=== PATIENT | female | born 1985 | race Caucasian/White ===

== ENCOUNTER 2023-03-30 01:11 | Day surgery (SDC) | payer BC, SELFPAY ==
--- NOTE | 2023-03-20 15:28 | PC.NURSE ---
Report to the Outpatient Waiting Room, entrance under the green pavilion located off [facility], at time 0600 on date 03/30/23. Planned Procedure Time: 0730. Time changes happen often and if your time is changed the preop area will call you the afternoon before. - You and your visitor will be asked to self-screen and do not enter if you have any COVID symptoms. - A mask is optional within the hospital at this time. Patients may have clear liquids (water, carbonated beverages, clear teas, apple juice) until 3 hours prior to surgery with a maximum of 20 ounces. 0430 - No food from midnight until time of surgery - Infants may have breast milk until 4 hours before surgery, formula 6 hours prior to surgery. - Children will be allowed to drink immediately following surgery. If applicable, please bring a bottle or sippy cup to assist with drinking. Juice, water, soda, and popsicles are readily available. For infants on formula, please bring formula the day of surgery. Pacifiers are allowed. Take the following medications with a SIP of water the morning of surgery: none DO NOT STOP ANY OF YOUR OTHER PRESCRIPTION MEDICATIONS PRIOR TO SURGERY ?EXCEPT THE FOLLOWING Medications to discontinue per physician multivitamin Date to take last dose 03/27/23 Please no make-up, nail lithuanian, hairspray, perfume, deodorant, or body powder the day of surgery. No jewelry (including any body piercings) or valuables the day of surgery, leave them at home. Please take a shower or bath the night before, or the morning of, surgery with an antibacterial soap. Wear comfortable, loose fitting clothing. Children are encouraged to wear pajamas. - Jewelry must be removed prior to entering the operating room. Rings and piercings that are not removed may be cut off. - The hospital will not accept responsibility for valuables. - Please leave all valuables, including medications, at home the day of surgery. If you are going home after surgery, a licensed fire truck driver must drive you home. - NO public transportation without another adult if you receive anesthesia. - We recommend that an adult stay with you for 24 hours following discharge. - We also recommend that you do not drive, make important decision, drink alcoholic beverages, or take any drugs that were not prescribed by your health care provider for at least 24 hours after your discharge time. For Pediatric surgeries, we recommend two adults accompany the child home. Follow any additional instructions given to you from your surgeon. If you or anyone in your household have experienced Covid symptoms in the past week, please notify your surgeon or the nurse liaison at the phone number below for possible testing. Telephone instructions given to Talisha Ho and asked if any additional questions and then verbalized understanding. Patient advised to call surgeon office or pre surgery nurse liaison [phone] if any additional questions.
[2023-03-20 15:34] VITALS: BMI 42.2
[2023-03-30] MEDS: LACTATED RINGERS 1,000 ML 30 ML IV CONT (06:52)
[2023-03-30] MEDS: ACETAMINOPHEN 500 MG TABLET 1000 MG PO (06:54)
--- NOTE | 2023-03-30 06:58 | WPDANESEPPF ---
Anes - Initial Pre Proc Eval Procedure: Operation Date: 03/30/23 07:30 Proposed Procedures p Hysteroscopy, Endometrial Biopsy, and Cervical Polypectomy - Zoila Haddad MD Date/Time: 03/30/23 06:58 Surgeon: Zoila Haddad MD Pre Op Diagnosis: Polyp of Cervix Patient Data Age: 37 Gender: F Height: 1.6 m Weight: 108.2 kg Allergies Allergy/AdvReac Type Severity Reaction Status Date / Time No Known Allergies Allergy Verified 03/30/23 06:51 Home Medications Medication Instructions Recorded Confirmed Type multivitamin q-iukgsevb-qdphqym 1 tablet PO DAILY 03/20/23 03/30/23 History fumarate 18 mg-vitamin K 25 mcg tablet Patient hx anesthesia problems: none Family hx anesthesia problems: none Results Review: All pre-operative results and documents have been reviewed as part of the pre-operative evaluation. [facility] Family History Family History Grandparent Carcinoma of colon Family history of coronary artery disease Other Family history of malignant neoplasm of male breast Social History Social History Smoking packs per day: 0.5 Smoking cigarettes per day: 10.0 Years smoked: 9 Smoking pack-years: 4.50 Smoking status: Former smoker Tobacco type: cigarettes Second hand tobacco smoke exposure: No Smoking end date: 10/29/09 Alcohol intake: current Alcohol use details: 2x per month Living arrangements: with family Spiritual care concerns: No Anes - Eval Final PreProcedure Day of Procedure 03/30/23 06:58 Patient weight: morbidly obese Heart: regular rate and rhythm Lungs: clear to auscultation Airway: Mallampati scale class II Neurological: alert and oriented Last oral intake: >/= 8 hours ASA classification: III Emergent: no Anesthetic plan: proceed Anesthesia type and monitoring: general GIVS and standard monitoring Results Review: All pre-operative results and documents have been reviewed as part of the pre-operative evaluation. Informed Consent: The patient's anesthetic plan and its attendant risks and benefits were discussed with the patient/family/POA. Questions were solicited and answers provided to the satisfaction of the patient/family/POA.
[2023-03-30 07:00] VITALS: BP 112/75; PULSE 66; RESP 16; TEMP 36.2; O2SAT 99
--- NOTE | 2023-03-30 07:18 | PM.IMHP ---
H&P: HPI History of Present Illness Date/Time: 03/30/23 07:18 Chief Complaint: endometrial polyp Narrative: Talisha is a 37yo who has been trying to conceive and had a probable polyp in the CAMACHO or cervix noted on US a few months ago. She is consented for HSC and polypectomy. Review of Systems Review of Systems: All systems reviewed & are unremarkable except as noted in HPI and below PMFSH Family History Family History Grandparent Carcinoma of colon Family history of coronary artery disease Other Family history of malignant neoplasm of male breast Social History Social History Smoking packs per day: 0.5 Smoking cigarettes per day: 10.0 Years smoked: 9 Smoking pack-years: 4.50 Smoking status: Former smoker Tobacco type: cigarettes Second hand tobacco smoke exposure: No Smoking end date: 10/29/09 Alcohol intake: current Alcohol use details: 2x per month Living arrangements: with family Spiritual care concerns: No Meds Home Medications and Allergies Home Medications Medication Instructions Recorded Confirmed Type multivitamin d-nivpvkph-yixceqe 1 tablet PO DAILY 03/20/23 03/30/23 History fumarate 18 mg-vitamin K 25 mcg tablet Allergies Allergy/AdvReac Type Severity Reaction Status Date / Time No Known Allergies Allergy Verified 03/30/23 06:51 Vital Signs Vital Signs - 24 hr 03/30/23 07:00 Temperature 97.2 F L Pulse Rate 66 Respiratory Rate 16 Blood Pressure 112/75 Pulse Oximetry 99 Oxygen Delivery Room Air Exam Const: General: no acute distress Resp: Effort & Inspection: normal respiratory effort Auscultation: clear to auscultation bilaterally Cardio: Rate: regular rate Rhythm: regular rhythm GI: GI Palp: Yes Soft to palpation Extrem: General: normal to inspection Assessment and Plan Assessment and plan (1) Uterine polyp: Code(s): N84.0 - Polyp of corpus uteri Status: Acute (2) Infertility: Status: Acute Plan Consented for HSC and polypectomy, will proceed. Discussed RBA.
--- NOTE | 2023-03-30 07:21 | WPDHPUPDATE1 ---
History and Physical Update Update Date/Time: 03/30/23 07:21 History and Physical has been reviewed, including an updated exam of the patient. There are NO changes in the patient's condition. Risks, benefits, and alternatives have been discussed and questions answered. Patient agrees to proceed with procedure.
[2023-03-30] MEDS: KETOROLAC 30 MG/ML VIAL (*BKC) IV PUSH (07:28)
[2023-03-30] MEDS: BUPIVACAINE/EPINEPHRINE 0.5% 50 ML VIAL 10 ML INFILTRATE (07:39)
--- NOTE | 2023-03-30 08:07 | W.PM.PROC2 ---
Procedure Note - Detailed Date of Procedure 03/30/23 Pre-op Diagnosis Polyp of Cervix Post-op Diagnosis Same Procedure Performed Hysteroscopy and polypectomy Surgeon Zoila Haddad MD Wine Manager none Anesthesia MAC Indications cervical or lower uterine segment polyp, infertility Findings thickened endometrium, large cervical polyp Description of Procedure The patient was taken to the OR and placed in dorthal lithotomy in [facility]. She received MAC anesthesia. A speculum was placed and the cervix grasped with a single tooth tenaculum. 10cc of 0.5% marcaine with epinephrine was instilled in a paracervical block. The cervix was hydrodilated. The Aveta hysteroscope was inserted and the uterine cavity was visualized with the findings noted above. An endometrial sample was taken using the Aveta blade and the cervical polyp was removed as well. The hysteroscope was removed and a sharp curettage was performed, obtaining endometrial curettings to send to pathology. The tenaculum was removed and the cervix was made hemostatic with Monsel's solution and pressure. The speculum was removed. The patient tolerated the procedure well. Fluid deficit was 60cc. Estimated Blood Loss 5 Drains No Packing No Pathology Yes Complications No immediate complications Condition Stable Disposition Same day
[2023-03-30 08:15] VITALS: BP 118/70; PULSE 69; RESP 16; O2SAT 100
[2023-03-30 08:45] VITALS: BP 107/72; PULSE 71; RESP 16
== END 2023-03-30 08:56 | disposition home or self-care (01) ==
PROVIDERS: PCP Family Medicine; Visit Provider Obstetrics & Gynecology
PROC: 0U5B8ZZ Destruction of Endometrium, Via Natural or Artificial Opening Endoscopic (ICD-10-PCS; CPT 58563; principal; 2023-03-30 07:30)
DX: N84.1 Polyp of cervix uteri (principal); Z87.891 Personal history of nicotine dependence; E66.01 Morbid (severe) obesity due to excess calories; Z68.41 Body mass index [BMI] 40.0-44.9, adult
CPT/HCPCS: 58558; 88305; A9270; J1100; J1885; J2250; J2405; J2704; J3010; J7120

== ENCOUNTER 2025-03-31 17:39 | Emergency (ER) | payer BC, SELFPAY ==
[2025-03-31] VITALS (8 sets, daily range): BP systolic 128–152; BP diastolic 82–107; PULSE 83–122; RESP 14–22; TEMP 36.5; O2SAT 95–98
--- NOTE | ~2025-03-31 | XR_ITS ---
XR chest 1V portable Ordering provider: Victoriano Perez MD History: 39 years Female with . cp . Comparison: None. FINDINGS: MEDIASTINUM: The cardiac silhouette is not enlarged. LUNGS: No infiltrates, effusions or pneumothorax. OTHER: No free air under the diaphragm. IMPRESSION: No acute cardiopulmonary pathology. Reviewed, dictated and finalized at location A.
--- NOTE | 2025-03-31 17:46 | ECG_ITS ---
Test Date: 2025-03-31 17:52:34 Measurements Intervals Ong Rate: 102 P: 45 IA: 158 QRS: 33 QRSD: 97 T: 9 QT: 333 QTc: 434 Interpretive Statements SINUS TACHYCARDIA POSSIBLE LEFT ATRIAL ENLARGEMENT CONSIDER INFERIOR INFARCT, AGE INDETERMINATE ABNORMAL ECG No previous ECG available for comparison Electronically Signed On 03-31-2025 18:51:35 CDT by Eldon Santiago D.O.
--- NOTE | 2025-03-31 17:46 | ED_ITS ---
HPI - Chest Pain General Chief Complaint: Shortness of Breath/Dyspnea Stated Complaint: chest pain/Shortness of breath Time Seen by Provider: 03/31/25 17:46 Source: patient and family Mode of arrival: ambulatory Limitations: no limitations History of Present Illness HPI narrative: patient is a 39-year-old female with left chest pain that radiates to her left arm with pain that is sharp. No face or neck pain. She does have a little bit of back pain mid chest. No nausea vomiting or diarrhea. There is associated shortness of breath. This all started in the past 1-2 hours prior to arrival. History of anemia with iron infusion. MD complaint: chest pain Pertinent past history: other ( None) Onset (ago): hour(s) ( 1-2) Timing of current episode: constant Prior episodes: No Onset: during rest ( driving) Pain location: substernal and left chest Pain radiation: left arm and left scapula Severity: moderate Pain scale (0-10): 5 Quality: sharp Relieving factors: nothing Exacerbating factors: nothing Context: other ( patient having left-sided chest pain for the past few hours. She got panicky and came to the ER. Short of breath positive.) Associated symptoms: dyspnea and sense of impending doom Treatment prior to arrival: none Risk Factors Coronary artery disease risk factors: none Thoracic aortic dissection risk factors: none Related Data On Oral Contraceptives: No Home Medications ?Medication ?Instructions ?Recorded ?Confirmed ?Last Taken ?Type multivitamin o-beqvmidb-zookwgf 1 tablet PO DAILY 03/20/23 03/30/23 03/20/23 History fumarate 18 mg-vitamin K 25 mcg tablet Allergies Allergy/AdvReac Type Severity Reaction Status Date / Time No Known Allergies Allergy Verified 03/30/23 06:51 Review of Systems 2 Review of Systems: All systems reviewed & are unremarkable except as noted in HPI and below Constitutional: Constitutional: Reports no additional constitutional complaints Eyes: Eyes: Reports no additional eye complaints ENT: Reports system reviewed and no additional complaints, except as documented Cardiovascular: Cardiovascular: Reports no additional cardiovascular complaints Respiratory: Respiratory: Reports no additional respiratory complaints Gastrointestinal: Gastrointestinal: Reports no additional gastrointestinal complaints Genitourinary: Genitourinary: Reports no additional female genitourinary complaints Musculoskeletal: Musculoskeletal: Reports no additional musculoskeletal complaints Integumentary/Breasts: Skin/Breast: Reports system reviewed and no additional complaints, except as docu Neurologic: Reports system reviewed and no additional complaints, except as documented Psychiatric: Psychiatric: Reports no additional psychiatric complaints Endocrine: Endocrine: Reports no additional endocrine complaints Hematologic/Lymphatic: Hematologic/Lymphatic: Reports no additional hematologic/lymphatic complaints Allergic/Immunologic: Allergic/Immunologic: Reports no additional allergic/immunologic complaints PMFSH Family History Family History Grandparent Carcinoma of colon Family history of coronary artery disease Other Family history of malignant neoplasm of male breast Social History Social History Smoking packs per day: 0.5 Smoking cigarettes per day: 10.0 Years smoked: 9 Smoking pack-years: 4.50 Smoking status: Former smoker Tobacco type: cigarettes Second hand tobacco smoke exposure: No Smoking end date: 10/29/09 Alcohol intake: current Alcohol use details: 2x per month Living arrangements: with family Gender identity (if verbalized by the patient): Female Sexual Orientation (if Verbalized by the Patient): Straight or Heterosexual Spiritual care concerns: No Exam 2 Const: General: healthy appearing Nutritional Appearance: well nourished Orientation/consciousness: patient oriented x3 Limitations: no limitations Other: Anxious with chest pain and shortness of breath HENMT: Head: normal to inspection Ears: external ears normal F paula/Nose/Sinus: Normal external nose present Eyes: Conjunctivae: conjunctivae normal Pupils: Equal, round and reactive pupils present EOM: EOMs intact bilaterally Neck: Neck: normal visual inspection Chest: Chest palpation & inspection: normal inspection of the chest Resp: Effort & Inspection: normal respiratory effort and not labored A uscultation: clear to auscultation bilaterally and no crackles Cardio: Rate: regular rate Rhythm: regular rhythm Heart sounds: no murmurs GI: Inspection: non-distended GI Palp: Yes Soft to palpation and No Tenderness to palpation present (GI) Auscultation: normal bowel sounds : General: Yes bladder normal to palpation Back/Spine/Pelvis: Back: no CVA tenderness Skin: General skin exam: normal color Rashes: no rashes Wounds: no wounds Neuro: General: patient oriented x3 Cranial nerves: Yes Nystagmus not present Speech: normal speech Extrem: General: normal to inspection Psych: Mental Status: mental status grossly normal Affect: normal affect Attitude: cooperative Course Vital Signs Vital signs: Vital Signs Temperature 36.5 C 03/31/25 17:39 Pulse Rate 122 H 03/31/25 17:39 Respiratory Rate 18 03/31/25 17:39 Blood Pressure 152/105 H 03/31/25 17:39 Pulse Oximetry 97 03/31/25 17:39 Oxygen Delivery Room Air 03/31/25 17:39 Temperature 36.5 C 03/31/25 17:39 Pulse Rate 103 H 03/31/25 18:00 Respiratory Rate 20 03/31/25 18:00 Blood Pressure 128/107 H 03/31/25 18:28 Pulse Oximetry 97 03/31/25 18:00 Oxygen Delivery Room Air 03/31/25 18:00 MDM - Chest Pain MDM Narrative Medical decision making narrative: patient is a 39-year-old female with left-sided chest pain for the past few hours. We will do a cardiac workup at this time. Blood pressure on the left arm and the right arm are equal. Lab Data Attestation: I reviewed the patient's lab results. 03/31/25 18:03 03/31/25 18:02 Labs: Lab Results 03/31/25 03/31/25 Range/Units 18:02 18:03 WBC 10.0 (4.8-10.8) K/mm3 RBC 4.39 (4.20-5.40) M/mm3 Hgb 10.9 L (12.0-15.0) g/dL Hct 35.2 (35.0-49.0) % MCV 80.2 (78.0-102.0) fL MCH 24.8 L (27.0-31.0) pg MCHC 31.0 L (32-36) g/dL RDW 14.7 H (11.6-14.4) % Plt Count 398 (150-420) K/mm3 MPV 8.8 L (9.2-11.8) fl Immature Gran % (Auto) 0.4 H (0.0-0.0) % Neut % (Auto) 74.9 H (50.0-70.0) % Lymph % (Auto) 18.2 (18.0-42.0) % [place]ard % (Auto) 4.5 (2.0-11.0) % Eos % (Auto) 1.5 (1.0-6.0) % Baso % (Auto) 0.5 (0.0-1.0) % Lymph # (Auto) 1.82 (1.10-4.50) K/mm3 [place] # (Auto) 0.45 (0.10-0.90) K/mm3 Eos # (Auto) 0.15 (0.02-0.50) K/mm3 Baso # (Auto) 0.05 (0.00-0.10) K/mm3 Abs Immat Gran (auto) 0.04 H (0.00-0.00) K/mm3 Absolute Neuts (auto) 7.49 H (1.70-7.20) K/mm3 Absolute Nucleated RBC 0.00 (0.00-0.00) K/mm3 Nucleated RBC % 0.0 (0-0.0) % D-Dimer 0.32 (0.19-0.50) mg/L Sodium 138 (137-145) mmol/L Potassium 3.8 (3.4-5.0) mmol/L Chloride 105 (98-107) mmol/L Carbon Dioxide 28 (22-30) mmol/L Anion Gap 5 (4-12) mmol/L BUN 10 (7-17) mg/dL Creatinine 0.69 L (0.7-1.0) mg/dL Estim Creat Clear Calc 112 ml/min Estimated GFR > 60 (59 - ) Glucose 95 (65-110) mg/dL Calculated Osmolality 285 (285-295) mOsm/kg Calcium 9.0 (8.4-10.2) mg/dL Magnesium 1.9 (1.6-2.3) mg/dL Total Bilirubin 0.4 (0.2-1.3) mg/dL AST 30 (14-36) U/L ALT 20 (6-35) U/L Alkaline Phosphatase 123 (38-126) U/L Troponin I < 0.012 (0.000-0.034) ng/mL NT-Pro-B Natriuret Pep 42 (19.9-100) pg/mL Total Protein 7.6 (6.3-8.2) g/dL Albumin 4.0 (3.5-5.1) g/dL Lipase 64 (23-300) U/L Imaging Data Attestation: I personally reviewed and interpreted this imaging study as follows: Radiologist's impression: Chest x-ray is negative for acute process ECG Data EKG #1: Attestation: I personally reviewed and interpreted this ECG as follows: ECG completion date: 03/31/25 ECG completion time: 18:32 EKG Interpretation: tachycardia, sinus rhythm, no ectopy, non-specific ST changes, normal QRS, normal QT and NL axis Discharge Plan Discharge Clinical Impression: Atypical chest pain, Acute costochondritis Patient Disposition: Home Condition: Stable Instructions: Costochondritis (ED) Patient Language: S[place] Prescriptions: New methylprednisolone [Medrol (Mundo)] 4 mg tablets,dose pack See Rx Instructions .ROUTE .COMPLEX Qty: 21 0RF Rx Instructions: orally per package directions No Action Adult Multivitamin with Iron 18 mg iron-25 mcg Tablet 1 tablet PO DAILY Follow-up/Referrals: Riky,MD Alonzo [Primary Care Provider] - Time of Disposition: 19:15
--- OUTSIDE RECORDS SUMMARY | 2025-03-31 17:46 | XMS_ITS | Clinical Summary ---
Author Organization [address] - [address] [facility] [address] [place] [address] Phone Care Team Providers Care Artists' Model Name Role Phone Alonzo Lan MD Primary Care Provider Social History Tobacco Use Types Packs/Day Years Used Date Smoking Tobacco: Never Assessed Comments Unknown Sex and Gender Information Value Date Recorded Sex Assigned at Not on file Legal Sex Female 9:44 AM CDT Gender Identity Not on file Sexual Orientation Not on file Plan of Treatment Health Maintenance Due Date Last Done Comments DTAP/TDAP/TD VACCINES (1 - Tdap) 2002 HEPATITIS B VACCINES (1 of 3 - 19+ 3-dose series) 2002 HPV/Cotest (21-29) 2004 CERVICAL CANCER SCREENING 2013 HPV/Cotest (30-65) 2013 PAP SMEAR 2013 BREAST CANCER SCREENING 2023 INFLUENZA VACCINE (#1) 2024 HPV VACCINES Aged Out No longer eligi ble based on patient's age to complete this topic Insurance BCBS BLUE ACCESS/TRUE BLUE PPO Care Teams Artists' Model Relationship Specialty Start Date End Date Alonzo Lan MD [address] [place] [id number] PCP - General Family Practice 04/24/13
--- OUTSIDE RECORDS SUMMARY | 2025-03-31 17:47 | XMS_ITS | Continuity of Care Document ---
Author Organization [facility] Address [address] [place] [address] Phone Care Team Providers Care Dragline Engineer Name Role Phone Unavailable Unavailable Unavailable Advance Directives Directive Yes / No Effective Date File Name No Information Encounters Encounter Description Practice Location Reason(s) For Visit Diagnoses Date Provider Providers Copied on Encounter [facility], [address] [facility], [place], [place], [id number], tel:[phone] [facility] No Information 3 No Information Referring Provider: ARACELI GALLEGOS, [address] [place] [address],[place], [address]. tel:[phone] Family History Family Member Type Diagnosis Age At Onset No Information Payers Payer name Insurance type Covered libertarian ID Authoriza jewel(s) [facility] PPO [id number] BL [id number] Social History Type Description Quantity Date Captured Comments Sex Female Smoking Status No Information Chief Complaint And Reason For Visit No Information History Of Present Illness Encounter Date Complaint History Of Prese nt Illness No Information Instructions Date Instruction Additional Infor mation No Information Assessments Type Assessment Date No Information
--- OUTSIDE RECORDS SUMMARY | 2025-03-31 17:47 | XMS_ITS | Data Portability ---
Author Organization [facility] [place] Address [address] [place] [address] Care Team Providers Care Service Now Developer Name Role Phone [facility] Primary Care Provider Assessment Encounter Date Assessment Date Assessment LastModified by Organization Details LastModified Time 02/20/2023 02/20/2023 Discussed US results from last May in depth. FIbroid should not impact fertility, but polyp in cervix may. it was not seen on exam. Offered repeat US vs HSC and polypectomy, pt desires to schedule HSC and polypectomy. discussed rbA< consented, will schedule. continue vit D Discussed increase in weight and BMI. Would like to see BMI under 40 to get back on letrozole and to improve her chances of . Discussed injectible weight loss meds, will repeat A1C today. Will contact PCP re weight loss meds, or may schedule with Beer. ledbetter Not available 02/20/2023 14:06:51 03/23/2023 03/23/2023 consented for HSC and polypectomy, discussed RBA, procedure, recovery. encouraged re pursuing weight loss. WWE due in May [email or web address] Not available 03/23/2023 13:41:49 04/06/2023 04/06/2023 doing well post op declines MINGO referral, wants to try now that polyps gone and work on weight loss PCP re Nani ledbetter Not available 04/06/2023 12:59:05 Plan of Treatment Reminders Order Date Submit Date Provider Last Modified By Organization Details Last Modified Time Details Appointments None recorded. Lab HbA1c (hemoglobin A1c), blood [address] [facility] (Lab), [address], [place], [address], 3 04:02:22 Referral None recorded. Procedures None recorded. Surgeries hysteroscop y, surgical, with biopsy of endometrium and/or polypectomy (SURG) 2022 023 [facility], [address], [place], [address], 3 09:16:57 Imaging US, transvagina l 2021 022 [place], [facility] [address], [place], [address], 2 17:54:19 Medication Orders None recorded. Patient TargetsNo targets recorded. Patient InstructionsNo instructions recorded. Reason for Referral None Reported. Results Created Date Observation Date Name Description Value Unit Range Abnormal Flag Note LastModifiedBy Organization Detail LastModifiedTime 05/31/20 22 05/31/2022 IMAGE GUIDE D PAP AND HPV REGAR DLESS image guided Pap, HPV regardless of Pap result SEE RESULT S BELOW CASE REPOR T: Cytol ogy Gynec ologi elías Repor t Case: [id number] Autho meaghan stefany Provi derrell: Zoila Rascon MD Colle cted: 05/31 1558 Order ing Locat ion: [place] Patho logy Recei perla: 06/01 0345 First Scree n: Radha Mcnamara Speci men: Scree ashley Pap - Image d, Cervi x STATE MENT OF ADEQU ACY: Satis facto ry for evalu ation Trans forma tion zone compo nent prese nt FINAL DIAGN OSIS: Negat bryan for Intra epith elial Wu mo or Evaristo santana (NIL) . Elect rosangela kelly xochitl d by Radha Mcnamara on 022 at 5:03 PM ----- ----- ----- ----- ----- ----- ----- ----- ----- ----- ----- ----- ----- ----- ----- ----- ----- ---- HPV RESUL TS: HPV mRNA E6/E7 : No HPV mRNA Detec shon NOTE: This high risk HPV mRNA assay detec ts fourt een high- risk HPV types (16, 18, 31, 33, 35, 39, 45, 51, 52, 56, 58, 59, 66, 68) witho ut diffe renti ation . COMME NT: Note: This speci men was revie wed by a Cytot echno logis t and/o r Patho logis t (as indic ated in this repor t) after evalu ation using the Thinp rep Imagi ng Syste m. CLINI ELÍAS INFOR MATIO N: Menst rual Statu s: LMP (if appli cable ): Clini elías Histo ry/Pr eviou s Pap: Type of Neopl guerrero (if appli cable ): Signi fican t Clini elías Findi ngs: Other Histo ry: Hormo julian (if appli cable ): PAP EDUCA BRENDA L NOTE: The Pap Test is a scree ashley test with an inher ent false negat bryan rate. Liqui d-bas ed sampl ing may decre ase, but will not elimi aliza, false negat bryan resul ts. A negat bryan resul t does not precl ude the prese nce and/o r devel opmen t of disea se, since the prese nce of abnor mal cells in the sampl e depen ds on the locat ion of the lesio n and sampl ing techn ique. Tyler nued regul ar scree ashley is the best metho d of cance r preve ntion . If repor shon cytol ogic findi ng do not corre late with physi elías and/o r histo rical findi ngs, furth er inves tigat ion is recom angy d, as clini olamide wilkes nted. Not Available [facility] [address] [facility], [place], [address], 06/05/2022 18:05:56 05/31/20 22 05/31/2022 DHEA SULFA TE DHEA-sulfate 55 ug/dL Femal e Range s Age(y ) Range (ug/d L) 10-15 34-28 0 15-20 65-36 8 20-25 148-4 07 25-35 99-34 0 35-45 61-33 7 45-55 35-25 6 55-65 19-20 5 65-75 9-246 > 75 12-15 4 Not Available [facility] [address] [place], [address], 06/05/2022 19:08:31 05/31/20 22 05/31/2022 ANTIM WALDEMAR NEELY NE (AMH) anti-mulleri an hormone (amh) 1.05 NG/mL Femal e Refer ence Range s 20-24 years : 1.22 - 11.70 ng/mL 25-29 years : 0.89 - 9.85 ng/mL 30-34 years : 0.58 - 8.13 ng/mL 35-39 years : 0.15 - 7.49 ng/mL 40-44 years : 0.03 - 5.47 ng/mL The follo wing resul ts were obtai karime with the Elecs ys assay . Resul ts from assay s of other manuf actur es canno t be used inter [facility] ably. Not Available [facility] [address] [place], [address], 06/05/2022 19:08:32 05/31/20 22 05/31/2022 ESTRA DIOL estradiol 251.0 pg/mL This assay was perfo rmed using [employer] Cor[employer] ratio n reage nts and test kits. Value s obtai karime with other assay metho ds or kits canno t be used inter [facility] eahadley . Femal e Estra diol Range s: Folli cular phase 12.4- 233 pg/mL Ovula tion phase 41.0- 398 pg/mL Lutea l phase 22.3- 341 pg/mL Postm enopa usal< 5-138 pg/mL Healt hy Pregn ant Women 1st Trime ster1 54-32 43 pg/mL 2nd Trime ster1 561-2 1280 pg/mL 3rd Trime ster8 525-> 52912 pg/mL Not Available [facility] [address] [place], [place] [address], [place], [address], 06/05/2022 19:08:32 05/31/20 22 05/31/2022 FSH FSH 12.0 mIU/m L This assay was perfo rmed using [employer] ratio n reage nts and test kits. Value s obtai karime with other assay metho ds or kits canno t be used inter [facility] . Femal es Folli cular : 3.5-1 2.5 mIU/m L Ovula tion: 4.7-2 1.5 mIU/m L Lutea l: 1.7-7 .7 mIU/m L Postm enopa use: 25.8- 134.8 mIU/m L Not Available [facility] [address] [place] [address], [address], 06/05/2022 19:08:32 05/31/20 22 05/31/2022 PROLA CTIN prolactin, total 16.90 NG/mL 4.79-2 3.30 This assay was perfo rmed using [employer] Corpo ratio n reage nts and test kits. Value s obtai karime with other assay metho ds or kits canno t be used inter [facility] . Not Available [facility] [address] [place] [address], [address], 06/05/2022 19:08:33 05/31/20 22 05/31/2022 TSH, REFLE X FREE T4 TSH 2.10 uIU/m L 0.30-5 .33 Not Available [facility] [address] [place] [address], [address], 06/05/2022 19:08:33 05/31/20 22 05/31/2022 VITAM IN D, 25-OH (TOTA L D2/D3 ) vitamin D, 25-hydroxy, total 21.0 NG/mL 30.0-1 00.0 low R-The refer ence range for this test has been updat ed. Sugge stive of Defic iency : <20 ng/mL Sugge stive of Insuf ficie ncy: 20-29 ng/mL Sugge stive of Suffi cienc y: 30-10 0 ng/mL Sugge stive of Toxic ity: >150 ng/mL Not Available [facility] [address] [place], [address], 06/05/2022 19:08:34 05/31/20 22 05/31/2022 HEMOG LOBIN A1C hemoglobin A1C 5.3 % 0-5.6 The Ameri can Diabe brittny Assoc iatio n recom mends that a prima ry goal of thera py shoul d be a HBA1C of < 7% and that physi cians shoul d reeva luate the treat ment regim en in patie nts with HBA1C value s consi stent ly > 8%. <5.7% Thi l 5.7 - 6.4% Incre ased risk for diabe brittny >=6.5 % Diagn ostic of diabe brittny <7.0% Goal of thera py >8.0% Actio n sugge sted Not Available [facility] [address] [place], [address], 06/05/2022 19:08:34 05/31/20 22 05/31/2022 TESTO STERO NE, FREE, DIREC T WITH TOTAL testosterone , serum 6 NG/dL 8-60 low Not Available [facility] [address] [place], [address], 06/05/2022 19:08:34 05/31/20 22 05/31/2022 TESTO STERO NE, FREE, DIREC T WITH TOTAL free testosterone (direct) 0.3 pg/mL 0.0-4. 2 Perfo rmed at: 01 - [facility] [facility] [address] [facility], [place] [address] Lab Direc tor: Sancho vale PhD, Phone : [phone] Perfo rmed at: 02 - [facility] [place] [address] [facility] , [place] [address] Lab Direc tor: Vicenta thakkar MD, Phone : [phone] Not Available [facility] [address] [place], [address], 06/05/2022 19:08:34 08/18/20 22 08/18/2022 DHEA SULFA TE DHEA-sulfate 48 ug/dL Femal e Range s Age(y ) Range (ug/d L) 10-15 34-28 0 15-20 65-36 8 20-25 148-4 07 25-35 99-34 0 35-45 61-33 7 45-55 35-25 6 55-65 19-20 5 65-75 9-246 > 75 12-15 4 Not Available [facility] (Lab) [address], [place], [address], 10/09/2022 15:41:17 08/18/20 22 08/18/2022 ESTRA DIOL estradiol 94.5 pg/mL This assay was perfo rmed using [employer] Corpo ratio n reage nts and test kits. Value s obtai karime with other assay metho ds or kits canno t be used inter [facility] e[facility] . Femal e Estra diol Range s: Folli cular phase 12.4- 233 pg/mL Ovula tion phase 41.0- 398 pg/mL Lutea l phase 22.3- 341 pg/mL Postm enopa usal< 5-138 pg/mL Healt hy Pregn ant Women 1st Trime ster1 54-32 43 pg/mL 2nd Trime ster1 561-2 1280 pg/mL 3rd Trime ster8 525-> 40246 pg/mL Not Available [facility] (Lab) [address] , [place], [address], 10/09/2022 15:42:23 08/18/20 22 08/18/2022 HUMAN SEX HORMO NE SANDI NG GLOBU ILDEFONSO sex hormone binding globulin 37.4 nmole s/L 18.2-1 35.5 Not Available [facility] (Lab) [address] [place], [address], 10/09/2022 15:44:25 08/18/20 22 08/18/2022 TSH, REFLE X FREE T4 TSH 2.06 uIU/m L 0.30-5 .33 Not Available [facility] (Lab) [address] [facility], [place], [address], 10/09/2022 15:44:27 08/18/20 22 08/18/2022 FSH FSH 3.8 mIU/m L This assay was perfo rmed using [employer] Corpo ratio n reage nts and test kits. Value s obtai karime with other assay metho ds or kits canno t be used inter [facility] . Femal es Folli cular : 3.5-1 2.5 mIU/m L Ovula tion: 4.7-2 1.5 mIU/m L Lutea l: 1.7-7 .7 mIU/m L Postm enopa use: 25.8- 134.8 mIU/m L Not Available [facility] (Lab) [address] [place], [address], 10/09/2022 15:44:29 08/18/20 22 08/18/2022 PROGE STERO NE progesterone 22.80 NG/mL This assay was perfo rmed using [employer] Corpo ratio n reage nts and test kits. Value s obtai karime with other assay metho ds or kits canno t be used inter [facility] eay . Femal e Proge stero ne Range s: Folli cular phase 0.06- 0.89 ng/mL Ovula tion phase 0.12- 12.00 ng/mL Lutea l phase 1.83- 23.90 ng/mL Postm enopa usal< 0.05- 0.13 ng/mL Healt hy Pregn ant Women 1st Trime ster1 1.0-4 4.30 2nd Trime ster2 5.40- 83.30 3rd Trime ster5 8.70- 214.0 0 Not Available [facility] (Lab) [address] [facility], [place], [address], 10/09/2022 15:44:31 08/18/20 22 08/18/2022 PROLA CTIN prolactin, total 18.90 NG/mL 4.79-2 3.30 This assay was perfo rmed using [employer] Corpo ratio n reage nts and test kits. Value s obtai karime with other assay metho ds or kits canno t be used inter [facility] e[facility] . Not Available [facility] (Lab) [address] [facility], [place], [address], 10/09/2022 15:45:33 08/18/20 22 08/18/2022 LH (LUTE NIZIN G HORMO NE) LH 10.5 mIU/m L This assay was perfo rmed using [employer] Corpo ratio n reage nts and test kits. Value s obtai karime with other assay metho ds or kits canno t be used inter [facility] eably . Femal es Mid-F ollic ular: 2.4-1 2.6 mIU/m L Mid-C ycle: 14.0- 95.6 mIU/m L Mid-L uteal : 1.0-1 1.4 mIU/m L Postm enopa use: 7.7-5 8.5 mIU/m L Not Available [facility] (Lab) [address] [facility], [place], [address], 10/09/2022 15:45:35 08/18/20 22 08/18/2022 TESTO STERO NE, FREE( DIALY SIS) AND TOTAL (LC/M S/MS) testosterone , total 14 NG/dL 2-45 For addit ional infor lili torre e refer to http: //hayden mo.que stdia gnost ics.c om/fa q/Tot [place] [facility] (This link is being provi ded for infor matio nal/ educa brenda l purpo ses only. ) This test was devel oped and its narcisa tical perfo rmanc e dwayne cteri stics have been deter mined by [facility]. It has not been clear ed or appro perla by the FDA. This assay has been valid ated pursu ant to the CLIA regul ation s and is used for clini elías purpo ses. Not Available [facility] (Lab) [address] [facility], [place], [address], 10/16/2022 10:22:52 08/18/20 22 08/18/2022 TESTO STERO NE, FREE( DIALY SIS) AND TOTAL (LC/M S/MS) testosterone , free 1.9 pg/mL 0.1-6. 4 This test was devel oped and its narcisa tical perfo rmanc e dwayne cteri stics have been deter mined by [employer]. It has not been clear ed or appro perla by the FDA. This assay has been valid ated pursu ant to the CLIA regul ation s and is used for clini elías purpo ses. Perfo rming Organ izati on Rosar braden n: Site ID: [id number] Name: [facility] [place] Addre ss: [id number] [place] [address] Direc tor: Rodolfo camarillo M.D. Not Available [facility] (Lab) [address] [facility], [place], [address], 10/16/2022 10:22:52 08/18/20 22 08/18/2022 17-OH PROGE STERO NE 17-hydroxypr ogesterone, lc/MS/MS 205 NG/dL Adult Femal e Refer ence Range s for 17-Hy droxy proge stero ne: Pre-M enopa usal Mid Folli cular : 23-10 2 ng/dL Pre-M enopa usal Surge : 67-34 9 ng/dL Pre-M enopa usal Mid Lutea l: 139-4 31 ng/dL Postm enopa usal Phase : < or = 45 ng/dL Pregn nic: First Trime ster: 78-45 7 ng/dL Secon d Trime ster: 90-35 7 ng/dL Third Trime ster: 144-5 78 ng/dL This test was devel oped and its narcisa tical perfo rmanc e dwayne cteri stics have been deter mined by [facility] [place] . It has not been clear ed or appro perla by FDA. This assay has been valid ated pursu ant to the CLIA regul ation s and is used for clini elías purpo ses. Perfo rming Organ izati on Infor matcitlali n: Site ID: [id number] Name: [facility] [place] , Addre ss: [id number] [place] [address] Direc tor: Ashleigh sepulveda MD,Ph D,NIRAJ Not Available [facility] (Lab) [address] [facility], [place], [address], 10/16/2022 10:22:53 08/18/2008/18/2022 HEMOG LOBIN A1C hemoglobin A1C 5.5 % 0-5.6 The Ameri can Diabe brittny Assoc iatio n recom mends that a prima ry goal of thera py shoul d be a HBA1C of < 7% and that physi cians shoul d reeva luate the treat ment regim en in patie nts with HBA1C value s consi stent ly > 8%. <5.7% Thi l 5.7 - 6.4% Incre ased risk for diabe brittny >=6.5 % Diagn ostic of diabe brittny <7.0% Goal of thera py >8.0% Actio n sugge sted Not Available [facility] (Lab) [address] [facility], [place], [address], 10/16/2022 10:22:53 06/08/20 22 06/08/2022 , pelvi s No observ ation record ed. [email or web address] [place] [address], [place], [address], 06/08/2022 17:13:51 06/08/20 22 06/08/2022 US, trans vagin al No observ ation record ed. [email or web address] [place] [address], [place], [address], 06/08/2022 17:14:00 06/08/20 22 06/08/2022 US, pelvi s No observ ation record ed. SHENA Clark [address], [place], [address], 10/23/2022 13:06:39 06/28/20 22 06/28/2022 US, trans vagin al No observ ation record ed. [email or web address] [place] [address], [place], [address], 06/28/2022 17:30:11 06/28/20 22 06/28/2022 US, trans vagin al No observ ation record ed. SHENA Clark [address], [place], [address], 10/17/2022 18:20:52 Result Notes None recorded. Problems Name Problem SNOMED Code Status Onset Date Resolution Date Notes Provider Name and Address Organization Details Recorded Time Past history of section 419460571 Active 2021 Zoila Haddad MD [address], [place], [address], [place] [facility] 2 12:19:34 Uterine leiomyoma 76200923 Active 2021 Zoila Haddad MD [address], [place], [address], [facility] 2 16:55:27 Vitamin D deficiency 75654730 Active 2021 Zoila Haddad MD [address], [place], [address], [facility] 2 16:55:28 Body mass index 40+ - severely obese 636016181 Active 2022 Zoila Haddad MD [address], [place], [address], [facility] 3 13:40:43 Problem Notes None recorded. Procedures Surgical History Date Name Laterality Status Provider Name and Address Organization Details Recorded Time 3 HYSTEROSCOPY, SURGICAL, WITH BIOPSY OF ENDOMETRIUM AND/OR POLYPECTOMY (SURG) completed Bev Valderrama [facility] 04/02/2023 10:48:52 8 Date of Last Pap Smear completed [facility] 05/31/2022 09:37:05 4 delivery completed [facility] 05/31/2022 09:36:12 Imaging Results None recorded. Procedure Notes None recorded. Medical Equipment None Reported. Allergies No known drug allergies Medications Name Sig Start Date Stop Date Status Note LastModified by Organization Details LastModified Time letrozole 2.5 mg tablet Take 1 tablet every day by oral route for 5 days. 02/20 completed Not Available Not Available Not Available amoxicillin 875 mg-potassium clavulanate 125 mg tablet 02/20 completed Not Available Not Available Not Available Vitals Date Recorded Body height Body mass index (BMI) Body weight Systolic blood pressure Diastolic blood pressure Provider Name and Address Organization Details Last Updated DateTime 02/20/2023 160.02 cm 42.9 kg/m2 857938.3 5 g 132 mm[Hg] 80 mm[Hg] [facility] 3 12:06:45 Date Recorded Body height Body mass index (BMI) Body weight Systolic blood pressure Diastolic blood pressure Provider Name and Address Organization Details Last Updated DateTime 03/23/2023 160.02 cm 43 kg/m2 168430.9 5 g 135 mm[Hg] 85 mm[Hg] [facility] 3 12:23:11 Date Recorded Body height Body mass index (BMI) Body weight Systolic blood pressure Diastolic blood pressure Provider Name and Address Organization Details Last Updated DateTime 04/06/2023 160.02 cm 42 kg/m2 769945.3 9 g 124 mm[Hg] 84 mm[Hg] [facility] 3 12:35:58 Social History Question Answer Notes LastModified by [employer] Details LastModified Time Tobacco Smoking Status Never [facility]oker [facility] 04/02/2023 10:21:38 Have You Ever Been Counseled For Unhealthy Alcohol Use? No [email or web address] Information not available 04/02/2023 Has Tobacco Cessation Counseling Been Provided? No Information not available 04/02/2023 Sex: Unknown Functional Status Question Answer Note LastModified by [employer] ion Details LastModified Time Do you use any illicit or recreational drugs? No Information not available 05/31/2022 Do you or have you ever used any other forms of tobacco or nicotine? No [email or web address] Information not available 04/02/2023 What is your level of alcohol consumption? Occasional Information not available 05/31/2022 Mental Status None recorded. Family History Nothing Reported. Medical History Condition Response Other N Blood Transfusion N Dermatologic Disorders N Gestational Diabetes N Anxiety Disorder N Autoimmune disease N Arthritis N Polyps N Infertility N Acid Reflux (GERD) N Cancer N Varicosities N Stroke N Neurologic/Epilepsy N Fibromyalgia N Headaches N Kidney Disease N Heart Problems N Kidney or Bladder Problems N Eating Disorder N Art (IVF or FET) N Hepatitis/Liver Disease N No Past Medical History N Urinary Tract Infection N Asthma N Trauma/Violence N Thrombophilias N Allergies (Food, seasonal, environmental ) N Breast Cancer N Drug/Latex Allergies/Reactions N Lung Disease N Defects or Inherited Disease N Breast Problem N Hematologic disorders N Anesthesia Complications N History of STI N Deep Vein Thrombosis N Polycystic ovary syndrome N History of abnormal pap N Endometriosis N High Cholesterol N Thyroid Problems N GI Problems N Anemia N Psychiatric Illness N Ovarian Cancer N Diabetes N Pulmonary (TB, Asthma) N Eczema N Abuse/Domestic Violence N Depression/ depression N Heart Disease N Pre-Eclampsia N Hypertension N Osteoporosis N Gynecological History Statement/Question Response Age of first menstrual cycle 13 Date of Last Pap Smear 03/17/2018 Current Control Method None Date of LMP 02/11/2023 Obstetrics History GPAL:G 2 P 1 0 1 1 Type Value Full Term 1 Spontaneous 1 Living 1 Total 2 Past Encounters Encounter ID Performer Location Encounter Start Date Encounter Closed Date Diagnosis/Indication Diagnosis SNOMED-CT Code Diagnosis ICD10 Code Diagnosis Note [id number] MD Janet [place] [address],[place] [address] 05/31/2022 11:56:19 05/31/2022 14:23:18 Gynecologic examination 25646661 Z01.419 Body mass index 30+ - obesity 181850785 Z68.39 Trying to conceive 04461 9001 Z31.9 [id number] MD Kerri [place] [address],[place] [address] 06/08/2022 16:22:29 06/08/2022 17:22:22 Female infertility 1453465 N97.9 [id number] Zoila Hadd[place] MD [place] [address],[place] [address] 06/19/2022 16:19:38 06/19/2022 17:07:47 Trying to conceive 059188559 Z31.9 Vitamin D deficiency 347 65445 E55.9 Uterine leiomyoma 969395 05 D25.9 [id number] MD Janet [place] [address] [place] [address] 06/28/2022 16:27:32 06/28/2022 17:54:19 Female infertility 4738560 N97.9 [id number] MD Janet [place] [address] [place] [address] 02/20/2023 12:01:52 02/20/2023 15:06:07 Body mass index 40+ - severely obese 936899673 Z68.41 Polyp of cervix 51329410 N84.1 Female infertility 06723 08 N97.9 [id number] Zoila [place]add[place] MD [place] [address] [place] [address] 03/23/2023 12:05:43 03/23/2023 13:57:02 Polyp of corpus uteri 92546679 N84.0 Body mass index 40+ - severely obese 251373156 Z68.41 Preoperative state 45427 002 Z78.9 [id number] Zoila Haddad MD [place] [address] [address] 04/06/2023 12:28:43 04/06/2023 13:02:00 Postoperative visit 862369732 Z09 Polyp of cervix 67152507 N84.1 Body mass index 40+ - severely obese 279568971 Z68.41 Trying to conceive 80238 9001 Z31.9 Health Concerns Section Related Observation LastModified by Organization Detai ls LastModified Time None Recorded Concern Status LastModified by Organization Details LastModified Time None Recorded Advance Directives Directive None Recorded Payers Encounter Date Sequence Insurance Name Policy Number Policy Acevedo Covered Member ID Acevedo Member ID Guarantor Name 06/28/2022 1 [employer] [id number] Talisha E Jubelt [id number] Talisha Jubelt 02/20/2023 1 [place] [id number] Talisha E Jubelt [id number] Talisha Jubelt 03/23/2023 1 [place] [id number] Talisha E Jubelt [id number] Talisha Jubelt 04/06/2023 1 [place] [id number] Talisha E Jubelt [id number] Talisha Jubelt Notes Date Note Type Note Provider Name and Address Organization Details Recorded Time 02/20/2023 text/html Jen is here for follow up infertility. Has done 5 cycles of letrozole 2.5mg. Pos OPKs every time. Had follicle scan with first cycle and had 2 dominant follicles. She also had a cervical polyp that US that she was supposed to schedule FU for (last May) and never did. Also a 4cm right fibroid that is not submucosal. She is taking Vit D. Also doing iron infusions for anemia currently. She has gained over 20# since last visit. Zoila Haddad MD [address], [place], [address], [facility] 02/20/2023 14:07:30 03/23/2023 text/html Jen is having HS C polypectomy in one week for cervical fibroid, TTC. Her A1C was 5.6. Talked to her PCP re weight loss injections, got script for Wegovy, but having insurance issues. working on getting prior auth to get it covered. no questions re surgery. Zoila Haddad MD [address], [place], [address], [facility] 03/23/2023 13:42:04 04/06/2023 text/html Pt is a 37yo here for a postoperative visit. She underwent a HSC and polypectomy (cervical) one week ago . She is recovering well. Pain none. Concerns: none. Working with PCP re Wegovy currently. Zoila Haddad MD [address], [place], [address], [facility] 04/06/2023 13:01:33 OBGyn Episode Ob Episode Information Episode Created Date Number of Fetuses Patient Bloodtype Patient rh Status Prepregnancy Weight lbs Domestic Partner Domestic Partner Phone Father Name Shovel Mechanic Status 05/31/20 22 1 CLOSED Fetus Data First Name Last Name Admitted to NICU Weight (g) Sex Living Outcome Pediatric Complications Fetus ID Race Codes Race Delivery Type F Full Term [id number] Primary Sergey Calculation Initial Sergey Date Initial Exam Date Initial Exam Provider Initial Ultrasound Date Last Menstrual Period Date Ultra Sound Weeks Gestation 0 Eighteen To Twenty Week Sergey Update Ultra Sound Date Fundal Height At Umbil Quickening Date Ultra Sound Latest Weeks Gestation Final Sergey Confirmed By Final Sergey Confirmed Date Final Sergey Date Ultra Sound Latest Days Gestation 0 0 Menstrual History Last Menstrual Date Menses Monthly On Bcp Conception Prior Menses Frequency Hcg Plus Date Menarche Onset Age Delivery Information Delivery Date Delivery Type Labor Anesthesia Weeks Gestation Incision Type Labor Labor Length Hrs Delivered By Post Complications Tubal Sterilization Discharge Date Comments 4 40 Discharge Information Feeding Method Contraceptive Method Maternal HG B and HCT Levels Ob Episode Information Episode Created Date Number of Fetuses Patient Bloodtype Patient rh Status Prepregnancy Weight lbs Domestic Partner Domestic Partner Phone Father Name Shovel Mechanic Status 05/31/20 22 1 CLOSED Fetus Data First Name Last Name Admitted to NICU Weight (g) Sex Living Outcome Pediatric Complications Fetus ID Race Codes Race Delivery Type , Spontane ous [id number] Sergey Calculation Initial Sergey Date Initial Exam Date Initial Exam Provider Initial Ultrasound Date Last Menstrual Period Date Ultra Sound Weeks Gestation 0 Eighteen To Twenty Week Sergey Update Ultra Sound Date Fundal Height At Umbil Quickening Date Ultra Sound Latest Weeks Gestation Final Sergey Confirmed By Final Sergey Confirmed Date Final Sergey Date Ultra Sound Latest Days Gestation 0 0 Menstrual History Last Menstrual Date Menses Monthly On Bcp Conception Prior Menses Frequency Hcg Plus Date Menarche Onset Age Delivery Information Delivery Date Delivery Type Labor Anesthesia Weeks Gestation Incision Type Labor Labor Length Hrs Delivered By Post Complications Tubal Sterilization Discharge Date Comments 9 Discharge Information Feeding Method Contraceptive Method Maternal HG B and HCT Levels
[2025-03-31 18:07] LABS: Basophils Absolute Auto 0.05 K/mm3 (0.00-0.10); Basophils Percent Auto 0.5 % (0.0-1.0); Eosinophils Absolute Auto 0.15 K/mm3 (0.02-0.50); Eosinophils Percent Auto 1.5 % (1.0-6.0); Hematocrit 35.2 % (35.0-49.0); Hemoglobin 10.9 g/dL (12.0-15.0); Immature Granulocyte Absolute 0.04 K/mm3 (0.00-0.00); Immature Granulocyte Percent A 0.4 % (0.0-0.0); Lymphocytes Absolute Auto 1.82 K/mm3 (1.10-4.50); Lymphocytes Percent Auto 18.2 % (18.0-42.0); Mean Corpuscular Hemoglobin 24.8 pg (27.0-31.0); Mean Corpuscular Volume 80.2 fL (78.0-102.0); Mean Platelet Volume 8.8 fl (9.2-11.8); Monocytes Absolute Auto 0.45 K/mm3 (0.10-0.90); Monocytes Percent Auto 4.5 % (2.0-11.0); Neutrophils Absolute Auto 7.49 K/mm3 (1.70-7.20); Neutrophils Percent Auto 74.9 % (50.0-70.0); Platelet Count Result 398 K/mm3 (150-420); Red Blood Count 4.39 M/mm3 (4.20-5.40); Red Cell Distribution Width 14.7 % (11.6-14.4)
--- OUTSIDE RECORDS SUMMARY | 2025-03-31 18:16 | XMS_ITS | Clinical Summary ---
Author Organization [employer] [address] - [address] [place] [address] Phone Care Team Providers Care Siene Maker Name Role Phone Alonzo Lan MD Primary [...] BCBS BLUE ACCESS/TRUE BLUE PPO Care Teams Siene Maker Relationship Specialty Start Date End Date Alonzo Lan MD [address] [place] [id number] PCP - General Family Practice 04/24/13
--- OUTSIDE RECORDS SUMMARY | 2025-03-31 18:16 | XMS_ITS | Continuity of Care Document ---
Author Organization [facility] Address [address] [place] [address] Phone Care Team Providers Care Gas Charger Name Role Phone Unavailable Unavailable Unavailable Advance Directives Directive Yes / No Effective Date File Name No Information Encounters Encounter Description Practice Location Reason(s) For Visit Diagnoses Date Provider Providers Copied on Encounter [facility], [address], [place], [place], [id number], tel:[phone] [facility] No Information 3 No Information Referring Provider: ARACELI GALLEGOS, [address] [place] [address],[place], [address]. tel:[phone] Family History Family Member Type Diagnosis Age At Onset No Information Payers Payer name Insurance type Covered republican ID Authoriza jewel(s) [facility] PPO [id number] Social History Type Description Quantity Date Captured Comments Sex Female Smoking Status No Information Chief Complaint And Reason For Visit No Information History Of Present Illness Encounter Date Complaint History Of Prese nt Illness No Information Instructions Date Instruction Additional Infor mation No Information Assessments Type Assessment Date No Information
--- OUTSIDE RECORDS SUMMARY | 2025-03-31 18:16 | XMS_ITS ---
Author Organization Unknown Address [address] [place] [phone] Phone Care Team Providers Care Car Porter Name Role Phone ZACHARIAH Knapp Attending Unavailable Results CHEST 2V - Completed: 2022 16:21 LOINC: EXAM DESCRIPTION: CHEST 2V REASON FOR STUDY: Acute Bronchitis....Onset x 5 weeks, Pain Rt Lower Ribs x 1 week and productive cough. Duration: . TECHNIQUE: 2 radiographic view(s) of the chest. COMPARISON: None FINDINGS: LUNGS: No focal opacity, pleural effusion, or pneumothorax. HEART/MEDIASTINUM: Cardiac silhouette normal in size. Mediastinal and hilar contours appear normal. LINES/TUBES: None. BONES: No acute osseous abnormality. IMPRESSION: No acute cardiopulmonary abnormality. THIS IS AN ELECTRONICALLY VERIFIED FINAL REPORT 09/30/2023 8:48 PM - Electronically signed by Siddhartha Tinoco M.D. KT: KT Report ID: [id number] Reading Location: [id number] Social History Type Status Start Date End Date Code Code Syst em Smoking History Never smoker (Never Smoked) [id number] SNOMED CT Sex Female Hospital Discharge Instructions Should you have any questions prior to discharge, please contact a member of your healthcare team. If you have left the hospital and have any questions, please contact your primary care physician. Reason For Referral No Data Found Allergies and Adverse Reactions Allergy Substance Reaction Severity Start Date Concern Status Co de Code System No Known Drug Allergies Active 808713742 SNOMED-CT Plan of Treatment IV Venofer 03/08/2023 IV Venofer 03/08/2023 IV Venofer 03/08/2023 IV Venofer 03/20/2023 IV Venofer 03/20/2023 IV Venofer 03/20/2023 IV Venofer 04/02/2023 IV Venofer 04/02/2023 IV Venofer 04/02/2023 Encounters Encounter Diagnosis Start Date Code Code Sys tem Acute bronchitis 09/28/2023 [id number] SNOMED-CT Personal Care Team Section Performer Name Performer Role Active Date Inactive Da te Imaging Narrative Notes
[2025-03-31 18:19] LABS: Alanine Aminotransferase 20 U/L (6-35); Alkaline Phosphatase 123 U/L (38-126); Anion Gap 5 mmol/L (4-12); Aspartate Amino Transferase 30 U/L (14-36); Bilirubin,Total 0.4 mg/dL (0.2-1.3); Blood Urea Nitrogen 10 mg/dL (7-17); Carbon Dioxide 28 mmol/L (22-30); Chloride 105 mmol/L (98-107); Estimated CRCL calculation 112 ml/min; Estimated Glomerular Filt Rate > 60; Glucose 95 mg/dL (65-110); Lipase 64 U/L (23-300); Magnesium 1.9 mg/dL (1.6-2.3); Osmolality Calculated 285 mOsm/kg (285-295); Potassium 3.8 mmol/L (3.4-5.0); Sodium 138 mmol/L (137-145); Total Protein 7.6 g/dL (6.3-8.2)
[2025-03-31 18:20] LABS: D Dimer 0.32 mg/L (0.19-0.50)
[2025-03-31 18:31] LABS: NT Pro B Type Natriuretic Pept 42 pg/mL (19.9-100); Troponin I < 0.012 ng/mL (0.000-0.034)
[2025-03-31] MEDS: predniSONE 20 MG TABLET PO (19:22)
== END 2025-03-31 19:31 | disposition home or self-care (01) ==
PROVIDERS: Emergency Provider Emergency Medicine; PCP Family Medicine
DX: R07.89 Other chest pain (principal); M94.0 Chondrocostal junction syndrome [Tietze]; R06.02 Shortness of breath; Z87.891 Personal history of nicotine dependence
CPT/HCPCS: 36415; 71045; 80053; 83690; 83735; 83880; 84484; 85025; 85380; 93005; 99284; J7512